=== PATIENT | male | born 1980 | race Caucasian/White ===

== ENCOUNTER 2018-10-10 08:59 | Day surgery (SDC) | payer BC ==
[~2018-10-10 08:59] MED LIST: Dexamethasone 4 MG/ML 5 ML MDV ONE; EPINEPHrine 1 MG/ML 30 ML MDV ONE; EPINEPHrine 1 MG/ML SDV ONE; Lactated Ringers 1,000 ML ONE; Lidocaine 1% 4 ML ONE; Lidocaine 1%/Sod Bicarbonate in NS 8.4% 1 ML Syringe IDERM PRN; Midazolam 1 MG/ML 2 ML SDV ONE; Ondansetron 4 MG/2 ML SDV ONE; Propofol 200 MG/20 ML SDV ONE; Ropivacaine 0.5% 5 MG/ML 30 ML SDV ONE; Sodium Chloride 0.9% 10 ML Syringe FLUSH PRN; ceFAZolin 1 GM Vial ONE; fentaNYL 250 MCG/5 ML SDV ONE
[2018-10-10] MEDS: Lactated Ringers 1,000 ML IV SCH ×2 (09:15→13:15)
--- NOTE | 2018-10-10 09:26 | PCM.PREANE ---
Preanesthetic Assessment - Anesthesia/Transfusion/Family Hx Anesthesia History: Prior Anesthesia Without Reaction Family History of Anesthesia Reaction: No Transfusion History: No Prior Transfusion(s) Intubation History: Unknown - Review of Systems General: No Symptoms Pulmonary: No Symptoms (ETOH: rarely) Cardiovascular: No Symptoms (High cholesterol) Gastrointestinal: No Symptoms Neurological: No Symptoms (chronic lower back pain) Other: Reports: None - Physical Assessment NPO Status Date: 10/09/18 NPO Status Time: 22:00 Pulse: 60 O2 Sat by Pulse Oximetry: 98 Respiratory Rate: 16 Blood Pressure: 133/88 Temperature: 36.6 C Vital Signs: Last Vital Signs Temp 36.6 C 10/10/18 09:05 Pulse 60 10/10/18 09:05 Resp 16 10/10/18 09:05 BP 133/80 10/10/18 09:05 Pulse Ox 98 10/10/18 09:05 Height: 1.7 m Weight: 87.543 kg ASA Class: 2 Mental Status: Alert & Oriented x3 Airway Class: Mallampati = 2 Dentition: Reports: Normal Dentition, Caries Thyro-Mental Finger Breadths: 3 Mouth Opening Finger Breadths: 3 ROM/Head Extension: Full Lungs: Clear to Auscultation, Normal Respiratory Effort Cardiovascular: Regular Rate, Regular Rhythm, No Murmurs - Lab Values: Laboratory Last Values MRSA (PCR) Negative 10/03/18 14:36 All lab values reviewed and noted and within acceptable ranges to proceed with scheduled procedure. - Allergies Allergies/Adverse Reactions: Allergies Allergy/AdvReac Type Severity Reaction Status Date / Time No Known Allergies Allergy Verified 10/07/18 12:34 - Anesthesia Plan Pre-Op Medication Ordered: None - Acknowledgements Anesthesia Type Planned: General Anesthesia (with Right interscalene block under US guidance for post operative pain control requested by Dr. Vicente.) Pt an Appropriate Candidate for the Planned Anesthesia: Yes Alternatives and Risks of Anesthesia Discussed w Pt/Guardian: Yes Pt/Guardian Understands and Agrees with Anesthesia Plan: Yes PreAnesthesia Questionnaire HEENT History: Reports: None Cardiovascular History: Reports: High Cholesterol Respiratory History: Reports: None Gastrointestinal History: Reports: Other (See Below) Other Gastrointestinal History: elevated lipoprotein Genitourinary History: Reports: None COUNT ROOM CLERK History: Reports: None Musculoskeletal History: Reports: Other (See Below) Other Musculoskeletal History: right rotator cuff tear Neurological History: Reports: None Psychiatric History: Reports: None Endocrine/Metabolic History: Reports: None Hematologic History: Reports: None Immunologic History: Reports: None Oncologic (Cancer) History: Reports: None Dermatologic History: Reports: None - Past Surgical History Head Surgeries/Procedures: Reports: None HEENT Surgical History: Reports: None Cardiovascular Surgical History: Reports: None Respiratory Surgical History: Reports: None GI Surgical History: Reports: Appendectomy Female Surgical History: Reports: None Male Surgical History: Reports: None Endocrine Surgical History: Reports: None Neurological Surgical History: Reports: None Musculoskeletal Surgical History: Reports: None Oncologic Surgical History: Reports: None Dermatological Surgical History: Reports: None - SUBSTANCE USE Smoking Status *Q: Never Smoker Recreational Drug Use History: No - HOME MEDS Home Medications: Home Meds Rosuvastatin Calcium 40 mg PO DAILY 10/07/18 [History] - CURRENT (IN HOUSE) MEDS Current Meds: Current Medications Lactated Ringer's (Ringers, Lactated) 1,000 mls @ 125 mls/hr IV ASDIRECTED BO Stop: 10/10/18 23:00 Lidocaine/Sodium Bicarbonate (Buffered Lidocaine 1% In Ns 8.4%) 0.25 ml IDERM ONETIME PRN PRN Reason: Prior to IV Start Stop: 10/10/18 18:00 Sodium Chloride (Saline Flush) 10 ml FLUSH ASDIRECTED PRN PRN Reason: Keep Vein Open Stop: 10/10/18 18:00 Discontinued Medications Cefazolin Sodium (Ancef) Confirm Administered Dose 2 gm .ROUTE .STK-MED ONE Stop: 10/10/18 08:22 Dexamethasone (Dexamethasone) Confirm Administered Dose 20 mg .ROUTE .STK-MED ONE Stop: 10/10/18 08:23 Epinephrine HCl (Adrenalin) 3 mg .XX ONETIME ONE Stop: 10/10/18 08:01 Epinephrine HCl (Adrenalin) Confirm Administered Dose 1 mg .ROUTE .STK-MED ONE Stop: 10/10/18 07:22 Fentanyl (Sublimaze) Confirm Administered Dose 250 mcg .ROUTE .STK-MED ONE Stop: 10/10/18 08:23 Lidocaine HCl (Xylocaine-Mpf 1%) Confirm Administered Dose 4 mls @ as directed .ROUTE .STK-MED ONE Stop: 10/10/18 07:22 Lidocaine HCl (Xylocaine-Mpf 1%) Confirm Administered Dose 4 mls @ as directed .ROUTE .STK-MED ONE Stop: 10/10/18 08:22 Lactated Ringer's (Ringers, Lactated) Confirm Administered Dose 1,000 mls @ as directed .ROUTE .STK-MED ONE Stop: 10/10/18 08:22 Midazolam HCl (Versed 1 Mg/Ml) Confirm Administered Dose 2 mg .ROUTE .STK-MED ONE Stop: 10/10/18 08:23 Ondansetron HCl (Zofran) Confirm Administered Dose 4 mg .ROUTE .STK-MED ONE Stop: 10/10/18 08:22 Propofol (Diprivan 20 Ml) Confirm Administered Dose 400 mg .ROUTE .STK-MED ONE Stop: 10/10/18 08:23 Ropivacaine (Naropin 0.5%) Confirm Administered Dose 30 ml .ROUTE .STK-MED ONE Stop: 10/10/18 07:22
[2018-10-10] MEDS ORDERED: Bupivacaine 0.25% 30 ML SDV ONE (09:28)
[2018-10-10] MEDS ORDERED: HYDROmorphone 0.5 MG/0.5 ML Syringe ONE (10:28)
[2018-10-10] MEDS ORDERED: Ketamine 500 mg/10 ML MDV ONE (10:30)
[2018-10-10] MEDS ORDERED: Ketorolac 30 MG/ML SDV ONE (10:55)
[2018-10-10] MEDS ORDERED: Meperidine 50 MG/ML Vial IVPUSH PRN (11:03)
[2018-10-10] MEDS ORDERED: HYDROmorphone 0.5 MG/0.5 ML Syringe IVPUSH PRN (11:03)
[2018-10-10] MEDS ORDERED: diphenhydrAMINE 50 MG/ML SDV IVPUSH PRN (11:03)
[2018-10-10] MEDS ORDERED: Ondansetron 4 MG/2 ML SDV IVPUSH PRN (11:03)
[2018-10-10] MEDS ORDERED: fentaNYL 100 MCG/2 ML SDV IVPUSH PRN (11:03)
[2018-10-10] MEDS ORDERED: Propofol 200 MG/20 ML SDV ONE (11:07)
--- NOTE | 2018-10-10 12:13 | PCM.POSTAN ---
POST ANESTHESIA ASSESSMENT - MENTAL STATUS Mental Status: Somnolent - VITAL SIGNS Pulse Rate: 65 SaO2: 95 Resp Rate: 7 Blood Pressure: 99/47 Temperature: 36.6 C - RESPIRATORY Respiratory Status: Respiratory Rate WNL, Airway Patent, O2 Saturation Stable, Supplemental Oxygen - CARDIOVASCULAR CV Status: Pulse Rate WNL, Blood Pressure Stable - GASTROINTESTINAL GI Status: No Symptoms - PAIN Pain Score: 0 - POST OP HYDRATION Hydration Status: Adequate & Stable
--- NOTE | 2018-10-10 12:16 | PCM.SN ---
- Free Text/Narrative Note: Interscalene nerve block note Date: 10/10/2018 Start: 946 Time Out: 946 Stop: 1001 Procedure: Right interscalene block under US guidance for postoperative pain control Patient chart reviewed, risk/benefits discussed with patient, consent obtained. Patient positioned supine, monitors/alarms on, oxygen placed via nasal cannula at 2 LPM. Right shoulder prepped with chloraprep x2. Sterile drapes placed with aseptic technique. Under US guidance, right subclavian artery visualized along with the brachial plexus. Plexus followed cephalad up to C6 cricoid level, and area localized with 2mls of 1% lidocaine. 22gauge 2 inch stimiplex needle inserted under US and guided to brachial plexus C5-C6 trunks with 0.44mV with stimulation of biceps noted. Stimulation abolished at 0.2mVs. 1ml of Normal Saline injected with loss of stimulation. Incremental injection of 5mls with negative aspiration prior to each injection of 0.5% ropivacaine with 1:200,000 epinephrine. Total volume=30mls. Refer to nurses notes for vital signs. Halle Morales CRNA
--- NOTE | 2018-10-10 14:37 | PCM48HPAN ---
Post Anesthesia Note - EVALUATION WITHIN 48HRS OF ANESTHETIC Vital Signs in Normal Range: Yes Patient Participated in Evaluation: Yes Respiratory Function Stable: Yes Airway Patent: Yes Cardiovascular Function Stable: Yes Hydration Status Stable: Yes Pain Control Satisfactory: Yes Nausea and Vomiting Control Satisfactory: Yes Mental Status Recovered: Yes
--- NOTE | 2018-10-13 08:33 | PCM.OPNOTE ---
- General Post-Op/Procedure Note Date of Surgery/Procedure: 10/10/18 Operative Procedure(s): right shoulder video arthroscopy with medium rotator cuff repair, subacromial decompression, extensive debridement and biceps tenodesis Pre Op Diagnosis: right shoulder with rotator cuff tear and impingement Post-Op Diagnosis: same with biceps tendinopathy Anesthesia Technique: General ET Tube, Regional Block Primary Surgeon: Manuel Vicente Anesthesia Provider: Dominique Morales Funeral Driver: Irina Vyas EBL in mLs: 5 Complications: None Condition: Good
--- NOTE | 2018-10-13 10:49 | OR ---
DATE OF OPERATION: 10/10/2018 SURGEON: Manuel Vicente MD OPERATION PERFORMED: Right shoulder video arthroscopy, medial rotator cuff repair, subacromial decompression, extensive debridement, and biceps tenodesis. PREOPERATIVE DIAGNOSIS: Right shoulder rotator cuff tear and impingement. POSTOPERATIVE DIAGNOSIS: Right shoulder rotator cuff tear and impingement with biceps tendinopathy. ANESTHESIA: General endotracheal intubation with regional interscalene block. ANESTHESIA PROVIDER: Mary Hernandez. HELIUM ARC WELDER: Irina Vyas LPN. ESTIMATED BLOOD LOSS: 5 mL. COMPLICATIONS: None. CONDITION: Stable. DESCRIPTION OF PROCEDURE: The patient was identified in the preoperative holding area. The proper site was marked and identified by the surgeon. The patient was taken back to the operating theater where after adequate anesthesia, the patient was placed in the lazy left lateral decubitus position. A wedge was placed posteriorly. The patient was secured to the table. All bony prominences were well padded. The patient's right upper extremity was then sterilely prepped and draped in the usual sterile fashion. OR time-out was performed. The patient received 2 g IV Ancef. At this time, 12 pounds of traction was applied to the right upper extremity. Standard posterior incision was made. Scope trocar was introduced into the glenohumeral joint. With the use of a spinal needle, anterior portal was created as well from an outside-in technique. At this time, the patient was noted to have significant fraying as well as erythema of the biceps tendon at its attachment and it was decided that we would do an arthroscopic biceps tenodesis. At this time, the patient was noted to have significant synovitis and I did significantly debride the synovitis superiorly as well as anteriorly. The patient's subscapularis tendon was intact. The patient had no chondromalacia. There were no loose foreign bodies in the axillary recess. The anterior portion of supraspinatus was noted to have a high-grade partial- thickness tear. The posterior portion as well as infraspinatus were intact. At this time, a #2 FiberWire was passed through the biceps tendon near its attachment and a biceps tenotomy was performed for then later tenodesis in the rotator interval in the subacromial space. At this time, the superior labrum was then debrided. Attention was turned to the subacromial space. A lateral portal was then created with the use of a spinal needle. Extensive debridement was done as the patient did have severe bursitis noted to the subacromial space. The patient was noted to have a type 2 acromion. With the use of a 4-0 full- radius, an acromioplasty as well as subacromial decompression was then completed at this time, back to a smooth border in line with the posterior border. A near full-thickness tear of the anterior portion of supraspinatus was then identified and was debrided. Good bony bleeding bed was then made. A 4.75 mm Arthrex SwiveLock anchor was then placed medially and 2 limbs of FiberWire as well as 2 limbs of FiberTape were then passed through the tear. The 2 limbs of FiberWire were then tied and all 4 limbs were brought out laterally. A lateral 4.75 Arthrex SwiveLock anchor was then placed. All tension was placed across the sutures and the other anchor was then placed. It was found to have adequate repair of the supraspinatus tear. At this time, excess saline was irrigated from the shoulder, 3-0 nylon suture was used for closure of the skin. The patient had a sterile soft dressing as well as a pillow sling applied and was sent to PACU in stable condition. BRIDGER /[id number]
== END 2018-10-10 14:28 | disposition home or self-care (01) ==
LOC: JD.SDS 08:59
PROVIDERS: ATTEND Orthopaedic Surgery
DX: M75.111 Incomplete rotator cuff tear or rupture of right shoulder, not specified as traumatic (principal); M25.811 Other specified joint disorders, right shoulder; M65.811 Other synovitis and tenosynovitis, right shoulder; E78.00 Pure hypercholesterolemia, unspecified
CPT/HCPCS: 29826; 29827; 29828; 64415; 87641; J0171; J0690; J1100; J1170; J1885; J2001; J2250; J2405; J2704; J2795; J3010; J7120; 01630; J3490